=== PATIENT | male | born 1950 | race Caucasian/White ===

== ENCOUNTER 2016-09-21 13:22 | Inpatient (IN) | payer MEDICARE, OTHER ==
[~2016-09-21] VITALS: Ht 160 cm; Wt 75.6 kg
[~2016-09-21 13:22] MED LIST: ALFU10TA PO; ASPI-496 PO; ATEN1TAB3 PO; ATOR40TA78 PO; FINA5TAB4 PO; LISI-167 PO; NIAC500C3 PO; OMEP-110 PO; OXYC1TAB8 PO; POTA10TA17 PO; TICA90TA PO
[2016-09-21] MEDS ORDERED: NITROGLYCERIN SINGLE TAB 0.4 MG SL PRN (14:00)
[2016-09-21] MEDS ORDERED: SODIUM CHLORIDE FLUSH 10ML SYR IVF ONE (14:00)
[2016-09-21] MEDS ORDERED: NITROGLYCERIN SINGLE TAB 0.4 MG SL ONE (14:08)
[2016-09-21 14:12] LABS: HEMOGLOBIN 17.4 g/dL (13.7-18.0)
[2016-09-21 14:24] LABS: ASPARTATE AMINO TRANSFERASE 30 U/L (15-37); BLOOD UREA NITROGEN 21 mg/dL (7-18)
[2016-09-21 14:30] LABS: IS PT STATUS REG ER OR PRE ER? YES
[2016-09-21] MEDS ORDERED: OXYC1TAB7 PO (15:24)
[2016-09-21] MEDS ORDERED: HEPARIN 5,000 UNITS/ML, 1ML IV ONE (15:30)
[2016-09-21] MEDS ORDERED: HEPARIN 5,000 UNITS/ML, 1ML ONE (15:52)
[2016-09-21] MEDS ORDERED: HEPARIN 25,000 UNITS/500ML PMX 500 ML ONE (15:52)
[2016-09-21] MEDS: HEPARIN 25,000 UNITS/500ML PMX 500 ML IV PRN ×2 (16:18→18:59)
[2016-09-21 16:59] LABS: IS PT STATUS REG ER OR PRE ER? YES
[2016-09-21] MEDS ORDERED: ONDANSETRON 2MG/ML, 2ML IVP PRN (17:30)
[2016-09-21] MEDS ORDERED: ONDANSETRON ODT 4 MG PO PRN (17:30)
[2016-09-21] MEDS ORDERED: BISACODYL 10 MG SUPP PR PRN (17:30)
[2016-09-21] MEDS ORDERED: MORPHINE SULFATE 4 MG/ML, 1ML IVPush PRN (17:30)
[2016-09-21] MEDS ORDERED: ACETAMINOPHEN 325 MG TABLET PO PRN (17:30)
[2016-09-21] MEDS ORDERED: POLYETHYLENE GLYCOL 17 GM PACKET PO PRN (17:30)
[2016-09-21] MEDS ORDERED: DOCUSATE 100 MG CAPSULE PO PRN (17:30)
[2016-09-21] MEDS ORDERED: LABETALOL 5MG/ML, 20ML IV PRN (17:30)
[2016-09-21 18:35] VITALS: BP 133/91
[2016-09-21] MEDS: POTASSIUM CHLORIDE 10 MEQ TABLET.ER PO SCH (19:10)
[2016-09-21 19:47] VITALS: BP 132/87
[2016-09-21] MEDS ORDERED: MAGNESIUM SULFATE PMX 2GM/50ML 50 ML IV ONE (20:30)
[2016-09-21] MEDS: LISINOPRIL 10 MG TABLET PO SCH (21:29)
[2016-09-21] MEDS: ATORVASTATIN 40 MG TABLET PO SCH (21:29)
[2016-09-21 22:35] LABS: IS PT STATUS REG ER OR PRE ER? NO
[2016-09-22 01:01] VITALS: BP 123/87
[2016-09-22] MEDS: HEPARIN 5,000 UNITS/ML, 1ML IV PRN ×2 (02:04→09:16)
[2016-09-22 05:06] LABS: HEMOGLOBIN 16.9 g/dL (13.7-18.0)
[2016-09-22 05:18] LABS: BLOOD UREA NITROGEN 20 mg/dL (7-18)
[2016-09-22 05:23] LABS: ASPARTATE AMINO TRANSFERASE 26 U/L (15-37)
[2016-09-22 05:33] LABS: IS PT STATUS REG ER OR PRE ER? NO
[2016-09-22] MEDS: ATENOLOL 50 MG TABLET PO SCH (05:39)
[2016-09-22] MEDS: ASPIRIN 81 MG TABLET EC PO SCH (05:39)
[2016-09-22 06:50] VITALS: BP 128/83
[2016-09-22] MEDS: FINASTERIDE 5 MG TABLET PO SCH (09:00)
[2016-09-22] MEDS: CHLORTHALIDONE 25 MG TABLET PO SCH (09:21)
[2016-09-22] MEDS: LISINOPRIL 10 MG TABLET PO SCH ×2 (09:21→21:36)
[2016-09-22] MEDS: CLOPIDOGREL 75 MG TABLET PO SCH (09:22)
[2016-09-22] MEDS: POTASSIUM CHLORIDE 10 MEQ TABLET.ER PO SCH ×2 (09:22→17:45)
[2016-09-22 13:17] VITALS: BP 134/91
[2016-09-22] MEDS ORDERED: MIDAZOLAM 1 MG/ML, 5ML ONE ×2 (13:51→15:57)
[2016-09-22] MEDS ORDERED: HEPARIN 1,000 UNITS/ML, 10ML ONE ×2 (13:52→16:20)
[2016-09-22] MEDS ORDERED: FENTANYL PF 100 MCG/2ML ONE ×3 (13:52→15:57)
[2016-09-22] MEDS ORDERED: TICAGRELOR 90 MG TABLET ONE (13:52)
[2016-09-22] MEDS ORDERED: VERAPAMIL 2.5 MG/ML, 2ML ONE (13:52)
[2016-09-22] MEDS ORDERED: LIDOCAINE 2%, 20ML ONE (13:52)
[2016-09-22] MEDS ORDERED: BIVALIRUDIN 250 MG ONE (13:52)
[2016-09-22 20:00] VITALS: BP 121/67
[2016-09-22] MEDS: ATORVASTATIN 40 MG TABLET PO SCH (21:36)
[2016-09-22] MEDS: TRAZODONE 50MG TABLET PO PRN (21:36)
[2016-09-23 02:00] VITALS: BP 121/73
[2016-09-23 04:42] VITALS: BP 119/79
[2016-09-23] MEDS: ASPIRIN 81 MG TABLET EC PO SCH (05:31)
[2016-09-23] MEDS: ATENOLOL 50 MG TABLET PO SCH (05:31)
[2016-09-23 06:21] LABS: BLOOD UREA NITROGEN 19 mg/dL (7-18)
[2016-09-23] MEDS: LISINOPRIL 10 MG TABLET PO SCH ×2 (08:46→22:06)
[2016-09-23] MEDS: CLOPIDOGREL 75 MG TABLET PO SCH (08:46)
[2016-09-23] MEDS: POTASSIUM CHLORIDE 10 MEQ TABLET.ER PO SCH ×2 (08:46→18:10)
[2016-09-23] MEDS: CHLORTHALIDONE 25 MG TABLET PO SCH (08:46)
[2016-09-23] MEDS: FINASTERIDE 5 MG TABLET PO SCH (08:47)
[2016-09-23 08:54] VITALS: BP 149/93
[2016-09-23] MEDS ORDERED: POTASSIUM CHLORIDE 10 MEQ TABLET.ER PO SCH (10:00)
[2016-09-23] MEDS: TEMPLATE NON-FORMULARY MED. (Alfuzosin Hcl** (Uroxatral**) 10 MG) PO SCH (10:00)
[2016-09-23] MEDS ORDERED: LIDODERM 5% PATCH TD PRN (11:00)
[2016-09-23] MEDS: OMEPRAZOLE 20 MG CAPSULE.DR PO SCH (12:03)
[2016-09-23 13:45] VITALS: BP 132/83
[2016-09-23] MEDS ORDERED: HYDROcodone/APAP 5/325 TABLET PO ONE (15:00)
[2016-09-23] MEDS ORDERED: ENOXAPARIN 40 MG/0.4 ML SQ SCH (17:00)
[2016-09-23 20:45] VITALS: BP 100/64
[2016-09-23] MEDS: ATORVASTATIN 40 MG TABLET PO SCH (22:06)
[2016-09-23] MEDS: TRAZODONE 50MG TABLET PO PRN (22:12)
[2016-09-24] VITALS (8 sets, daily range): BP systolic 105–141; BP diastolic 69–89
[2016-09-24] MEDS: ASPIRIN 81 MG TABLET EC PO SCH (05:37)
[2016-09-24] MEDS: ATENOLOL 50 MG TABLET PO SCH (06:37)
[2016-09-24] MEDS: OMEPRAZOLE 20 MG CAPSULE.DR PO SCH (06:44)
[2016-09-24] MEDS: CLOPIDOGREL 75 MG TABLET PO SCH (08:01)
[2016-09-24] MEDS: CHLORTHALIDONE 25 MG TABLET PO SCH (08:01)
[2016-09-24] MEDS: POTASSIUM CHLORIDE 10 MEQ TABLET.ER PO SCH ×2 (08:02→18:31)
[2016-09-24] MEDS: LISINOPRIL 10 MG TABLET PO SCH ×2 (08:02→20:31)
[2016-09-24] MEDS: FINASTERIDE 5 MG TABLET PO SCH (08:03)
[2016-09-24] MEDS: TEMPLATE NON-FORMULARY MED. (Alfuzosin Hcl** (Uroxatral**) 10 MG) PO SCH (09:00)
[2016-09-24] MEDS: ATORVASTATIN 40 MG TABLET PO SCH (20:30)
[2016-09-24] MEDS: TRAZODONE 50MG TABLET PO PRN (20:31)
[2016-09-25 03:22] VITALS: BP 128/80
[2016-09-25] MEDS: ASPIRIN 81 MG TABLET EC PO SCH (06:34)
[2016-09-25] MEDS: ATENOLOL 50 MG TABLET PO SCH (06:34)
[2016-09-25 08:01] VITALS: BP 135/93
[2016-09-25] MEDS: POTASSIUM CHLORIDE 10 MEQ TABLET.ER PO SCH (08:56)
[2016-09-25] MEDS: OMEPRAZOLE 20 MG CAPSULE.DR PO SCH (08:56)
[2016-09-25] MEDS: CLOPIDOGREL 75 MG TABLET PO SCH (08:56)
[2016-09-25] MEDS: CHLORTHALIDONE 25 MG TABLET PO SCH (08:56)
[2016-09-25] MEDS: LISINOPRIL 10 MG TABLET PO SCH (08:56)
[2016-09-25] MEDS: TEMPLATE NON-FORMULARY MED. (Alfuzosin Hcl** (Uroxatral**) 10 MG) PO SCH (08:57)
[2016-09-25] MEDS: FINASTERIDE 5 MG TABLET PO SCH (08:57)
[2016-09-25] MEDS ORDERED: HEPARIN 25,000 UNITS/500ML PMX 500 ML IV PRN ×2 (09:00→09:30)
[2016-09-25] MEDS ORDERED: HEPARIN 5,000 UNITS/ML, 1ML IV ONE (09:30)
[2016-09-25] MEDS ORDERED: HEPARIN 5,000 UNITS/ML, 1ML IV PRN (09:30)
[2016-09-25 14:59] VITALS: BP 117/77
[2016-09-25] MEDS ORDERED: LISI-167 PO (16:42)
[2016-09-25] MEDS ORDERED: POTA10TA5 PO (16:42)
[2016-09-25] MEDS ORDERED: TRAZ50TA18 PO (16:42)
[2016-09-25] MEDS ORDERED: CHLO25TA PO (16:42)
[2016-09-25] MEDS ORDERED: ATEN50TA41 PO (16:42)
[2016-09-25] MEDS ORDERED: CLOP75TA PO (16:42)
[2016-09-25] MEDS ORDERED: ASPI-621 PO (16:42)
[2016-09-25] MEDS ORDERED: OMEP-110 PO (16:42)
[2016-09-25] MEDS ORDERED: ALPR0.254 PO (16:42)
[2016-09-25] MEDS ORDERED: FINA5TAB4 PO (16:42)
[2016-09-25] MEDS ORDERED: ATOR40TA78 PO (16:42)
[2016-09-25] MEDS ORDERED: LIDO700A5 TD (16:42)
[2016-09-25] MEDS ORDERED: MECLIZINE CHEWABLE 25 MG TAB PO ONE (17:00)
== END 2016-09-25 17:20 | DRG 269 ==
LOC: ED 15:03 → EDIP 15:43 → 5SO 18:15
PROVIDERS: ADMIT Internal Medicine; ATTEND Internal Medicine
PROC: 02C Heart and Great Vessels, Extirpation (ICD-10-PCS; principal; 2016-09-22)
PROC: 4A023N7 Measurement of Cardiac Sampling and Pressure, Left Heart, Percutaneous Approach (ICD-10-PCS; 2016-09-22)
PROC: B2111ZZ Fluoroscopy of Multiple Coronary Arteries using Low Osmolar Contrast (ICD-10-PCS; 2016-09-22)
PROC: B2151ZZ Fluoroscopy of Left Heart using Low Osmolar Contrast (ICD-10-PCS; 2016-09-22)
PROC: 02C13ZZ Extirpation of Matter from Coronary Artery, Two Arteries, Percutaneous Approach (ICD-10-PCS; 2016-09-22)
DX: I21.4 Non-ST elevation (NSTEMI) myocardial infarction (principal); T81.59 Other complications of foreign body accidentally left in body following procedure; I25.110 Atherosclerotic heart disease of native coronary artery with unstable angina pectoris; Y92.239 Unspecified place in hospital as the place of occurrence of the external cause; Y71.8 Miscellaneous cardiovascular devices associated with adverse incidents, not elsewhere classified; I25.119 Atherosclerotic heart disease of native coronary artery with unspecified angina pectoris; I10 Essential (primary) hypertension; E78.5 Hyperlipidemia, unspecified; N40.0 Benign prostatic hyperplasia without lower urinary tract symptoms; E78.1 Pure hyperglyceridemia; F41.9 Anxiety disorder, unspecified; R79.89 Other specified abnormal findings of blood chemistry; G47.00 Insomnia, unspecified; G47.33 Obstructive sleep apnea (adult) (pediatric); E83.42 Hypomagnesemia; N21.0 Calculus in bladder; J32.9 Chronic sinusitis, unspecified; Z82.3 Family history of stroke; Z82.49 Family history of ischemic heart disease and other diseases of the circulatory system; Z87.442 Personal history of urinary calculi; Z87.891 Personal history of nicotine dependence; I25.2 Old myocardial infarction; Z91.81 History of falling; Z95.5 Presence of coronary angioplasty implant and graft; Z88.2 Allergy status to sulfonamides; Z91.018 Allergy to other foods
CPT/HCPCS: 36415; 37203; 71010; 80048; 80053; 82040; 83735; 83880; 84100; 84484; 85025; 85379; 85520; 85610; 85730; 93005; 93458; 96365; C1769; C1894; J0583; J1644; J1650; J2250; J3010; J3490; C1725; C1773; J3475; Q9967